=== PATIENT | female | born 1990 | race Caucasian/White ===

== ENCOUNTER 2018-10-09 06:08 | Day surgery (SDC) | payer OTHER ==
[~2018-10-09] VITALS: Ht 170.2 cm; Wt 70.9 kg
[~2018-10-09 06:08] MED LIST: CEPH500 PO; HYDR1TAB94 PO; MULVITMINE PO; OMEGA 3 PO
[2018-10-09] MEDS ORDERED: TURMERIC538 MG PO (06:50)
[2018-10-09] MEDS ORDERED: ASHWAGANDHA PO (06:51)
[2018-10-09] MEDS ORDERED: [UNRECOGNIZED DRUG - OTHER] PO (06:51)
[2018-10-09] MEDS ORDERED: [UNRECOGNIZED DRUG - OTHER] PO (06:52)
[2018-10-09] MEDS ORDERED: CORDYCEPS PO (06:52)
[2018-10-09] MEDS ORDERED: RHODIOLA PO (06:52)
[2018-10-09] MEDS ORDERED: VITAMIN C PO (06:53)
[2018-10-09] MEDS ORDERED: PROBIOTIC (06:53)
[2018-10-09] MEDS ORDERED: MAGNESIUM PO (06:53)
[2018-10-09] MEDS ORDERED: MELATONIN PO (06:54)
[2018-10-09] MEDS ORDERED: KRATOM PO (06:54)
--- NOTE | 2018-10-09 06:59 | NUR ---
History, Chart, Medications and Allergies reviewed before start of procedure. Patient confirms NPO status and agrees with scheduled surgery. Lungs clear T/O to Auscultation. Patient reports completing Chlorhexadine shower X1 prior to admission to hospital. Pre-Op teaching done. Pt verbalizes understanding. Patient States Post-Procedure ride home has been arranged.
--- NOTE | 2018-10-09 07:31 | NUR ---
IV LEVAQUIN STARTED IN SDS VIA PUMP OVER 1 HOUR, PATIENT DEVELOPED SOME PINK BLOTCHY AREAS PROXIMAL TO THE IV SITE AFTER INFUSION BEGAN BY APPROXIMATELY 10 MINUTES. WILL NOTIFY ANESTHESIOLOGIST FOR ADDITIONAL MONITORING.
--- NOTE | 2018-10-09 10:32 | NUR ---
Discharge instructions reviewed with patient. Patient verbalizes understanding. Copy given to patient to take home. DRAIN INSTRUCTIONS PROVIDED AND DEMONSTRATED FOR PT AND HER MOM. VERBALIZED UNDERSTANDING. DRG C/D/I. NO DRAINING REMOVED FROM BULB DRAIN AT THIS TIME. LINE WAS STRIPPED. Discharged via wheelchair to private car for ride home.
== END 2018-10-09 10:34 | disposition home or self-care (01) ==
LOC: ORSCMMR 06:08 → ORD 07:30 → ORSCMMR 10:34
PROVIDERS: Surgery
PROC: 0HX8XZZ Transfer Buttock Skin, External Approach (ICD-10-PCS; principal; 2018-10-09 07:30)
PROC: 0JB90ZZ Excision of Buttock Subcutaneous Tissue and Fascia, Open Approach (ICD-10-PCS; principal; 2018-10-09 07:30)
DX: L05.91 Pilonidal cyst without abscess (principal); Z87.891 Personal history of nicotine dependence
CPT/HCPCS: 88304; A9270-GY; J0330; J1100; J1956; J2250; J2704; J3010; J7120

== ENCOUNTER → 2019-04-22 | Outpatient (CLI) | payer OTHER ==
[~2019-04-22] MED LIST changes: +ASHWAGANDHA PO; +CORDYCEPS PO; +KRATOM PO; +MAGNESIUM PO; +MELATONIN PO; +PROBIOTIC; +RHODIOLA PO; +TURMERIC538 MG PO; +VITAMIN C PO; +[UNRECOGNIZED DRUG - OTHER] PO; +[UNRECOGNIZED DRUG - OTHER] PO
== END | disposition home or self-care (01) ==
LOC: LAB SHORT 09:49 → LAB 09:49
DX: J02.9 Acute pharyngitis, unspecified (principal); R50.81 Fever presenting with conditions classified elsewhere
CPT/HCPCS: 87081; 87147

== ENCOUNTER → 2020-04-21 | Outpatient (CLI) | payer OTHER | LOC: LAB 07:30 | DX: L02.91 Cutaneous abscess, unspecified (principal) | CPT/HCPCS: 87070; 87075; 87205 ==

== ENCOUNTER → 2025-03-29 | Outpatient (CLI) | payer OTHER | END | disposition home or self-care (01) | LOC: LAB SHORT 10:24 → LAB 10:24 | DX: N39.0 Urinary tract infection, site not specified (principal) | CPT/HCPCS: 87077; 87086; 87186 ==